=== PATIENT | female | born 1940 | race Caucasian/White ===

== ENCOUNTER 2025-02-02 06:24 | Day surgery (SDC) | payer OTHER, SELFPAY ==
[2025-02-02] VITALS (12 sets, daily range): BP systolic 111–162; BP diastolic 48–78; BMI 25.1
[2025-02-02] MEDS: LOW STRENGTH ASPIRIN 81 MG PO (07:44)
[2025-02-02] MEDS: NSS 181 ML IV (07:46)
[2025-02-02 08:02] LABS: Hematocrit 35.4 % (37.0-47.0); Hemoglobin 11.4 g/dL (12.0-16.0); Mean Corp Hgb Conc. 32.2 g/dL (33.0-37.0); Mean Corpuscular Volume 100.6 fL (81.0-99.0); Nucleated Red Blood Cells % 0 %; Platelet Count 202 10^3/uL (130-400); Red Cell Dist. Width 12.3 % (11.5-14.5)
[2025-02-02 08:17] LABS: Blood Urea Nitrogen 57 mg/dl (7-17); Calcium 10.2 mg/dl (8.4-10.2); Carbon Dioxide 22 mmol/L (22-30); Chloride 107 mmol/L (98-107); Estimated Creatinine Clearance 15 ml/min; Glucose 99 mg/dl (70-99); Potassium 5.3 mmol/L (3.5-5.1); Sodium 140 mmol/L (135-145); eGFR 21.70
[2025-02-02 11:04] LABS: ACT-LR - POC 231 Seconds (116-155)
--- NOTE | 2025-02-02 12:39 | CONSULT.CT ---
Addendum entered and electronically signed by Lobo Wang MD 02/02/25 15:42:
CARDIAC SURGERY ATTENDING:
It was my pleasure to meet with Mrs. Sangita Mccarthy at her bedside. She is a very pleasant 84-year-old woman with past medical history as noted below who presented with SOB, chest tightness, and fatigue progressive over the antecedent 6 months.
She had an abnormal nuclear stress test. She underwent cardiac catheterization earlier today which demonstrated significant left main/multivessel CAD, prompting consideration for surgical coronary revascularization.
I had a very taina conversation with Mrs. Mccarthy who was very clear that she did NOT want to consider any surgical intervention and likely would not desire any PCI/stenting intervention. She stated, 'I decided to just go with the medications' We
discussed the possibility of ongoing/worsening symptomatology and potential for myocardial infarction that could result in her . She seemed comfortable with this stating, 'I never expected to live this long, I do not have longevity in my
family.'
I informed the patient that I would happily reevaluate her should she change her mind and wish to consider surgical intervention. She was appreciative of our conversations.
Thank you,
Lobo Wang M.D.
[phone]
Original Note:
Consultation
-
Date/Time Consultation Requested: 02/02/25
Date/Time Consultation Performed: 02/02/25 12:40
Requesting Provider: Dr. Renée Green MD.
Performing Provider: Maribeth Sanchez PA-C
Reason for Consultation: LM MV CAD, CABG eval
Patient History
Physicians
Family Physician: Dr. Barrie Vargas MD.
Outpatient Escrow Assistant: Dr. Eliel Swanson MD. CCP
Inpatient Escrow Assistant: RON-Dr. Green
History of Present Illness
Patient is extremely pleasant 84-year-old female with past medical history significant for sick sinus syndrome status post dual-chamber [employer] pacemaker insertion by Dr. Candelraio on June 05, 2018, status post generator change
March 2022, CKD stage IV with baseline creatinine 2.2 on 02/03/2020 (2.2 this admission), HTN, HLD, carotid stenosis right greater than left, ovarian cancer 11/17/2002 status post [facility] followed by 9 months of chemotherapy treated at [place],
and former tobacco abuse (quit smoking 43 years ago).
Patient was last seen in the office by Dr. Candelario on January 11, 2025 to evaluate her pacemaker settings as well as her symptomatology. She continues with shortness of breath, chest tightness, and fatigue. Symptoms have been ongoing for the
previous 6 months. Given her history a nuclear stress test was ordered and was found to be abnormal. She was subsequently scheduled for cardiac catheterization at [facility] with Dr. Peter MD today 02/02/25.
Subsequent angiogram revealed left main multivessel CAD. CT surgery was asked to evaluate the patient for coronary artery revascularization.
Past Medical History
Sick sinus syndrome s/p dual-chamber [employer] pacemaker insertion by Dr. Candelario on June 05, 2018
S/p generator change March 2022
CKD stage IV with baseline creatinine 2.2 on 02/03/2020 (2.2 this admission)
HTN/HLD
Carotid stenosis right greater than left
Ovarian cancer 11/17/2002 status post [facility] followed by 9 months of chemotherapy treated at [place]
Former tobacco abuse (quit smoking 43 years ago).
Past Surgical History
Tonsillectomy
[employer] dual-chamber PPM inserted on 06/05/2018
Right inguinal hernia repair 1999
Dental History
Noncontributory
Family History
Mother: at Age (63) and Cause of (Bladder cancer)
Father: at Age (76) and Cause of (AR)
Family Medical History: CAD
Social History
Alcohol: Occasional (1 drink per year)
Drug: None
Tobacco: Former Smoker (Quit 43 years ago)
Personal:
Living: Alone (Patient has 2 daughters)
Employment: Retired (Formally worked at [employer])
Allergies
Allergy/AdvReac Type Severity Reaction Status Date / Time
Penicillins Allergy Severe Redness, Verified 02/02/25 07:54
swelling
of face
alendronate sodium (From Allergy leg pain Verified 02/02/25 07:54
Fosamax)
carvedilol (From Coreg) Allergy cough Verified 02/02/25 07:54
hydralazine Allergy loss of Verified 02/02/25 07:54
appetite,
depression
hydrochlorothiazide (From Allergy cough Verified 02/02/25 07:54
Hyzaar)
lisinopril (From Zestril) Allergy cough Verified 02/02/25 07:54
losartan (From Cozaar) Allergy cough Verified 02/02/25 07:54
nebivolol (From Bystolic) Allergy cough Verified 02/02/25 07:55
prochlorperazine Allergy myalagias Verified 02/02/25 07:54
valsartan (From Diovan) Allergy cough Verified 02/02/25 07:54
Home Medications
�Medication �Instructions �Recorded �Confirmed �Type
aliskiren 300 mg tablet 300 mg PO DAILY 02/02/25 02/02/25 History
aspirin 81 mg tablet 81 mg PO DAILY 02/02/25 02/02/25 History
cholecalciferol (vitamin D3) 50 50 mcg PO DAILY 02/02/25 02/02/25 History
mcg (2,000 unit) tablet (Vitamin
D3)
cyanocobalamin (vitamin B-12) 1,000 mcg sublingual DAILY 02/02/25 02/02/25 History
1,000 mcg sublingual tablet
indapamide 2.5 mg tablet 2.5 mg PO DAILY 02/02/25 02/02/25 History
multivitamin 1 tab PO DAILY 02/02/25 02/02/25 History
nifedipine 60 mg tablet,extended 60 mg PO DAILY 02/02/25 02/02/25 History
release
omega 0-whn-aiy-fish oil 1,200 mg 3 cap PO DAILY 02/02/25 02/02/25 History
(144 mg-216 mg) capsule (Fish Oil)
rosuvastatin 5 mg tablet 5 mg PO DAILY 02/02/25 02/02/25 History
venlafaxine 75 mg capsule,extended 75 mg PO DAILY 02/02/25 02/02/25 History
release 24 hr (Effexor XR)
Review of Systems
-
History Source: Patient
General: Denies Fever, Weight Gain, Weight Loss, Fatigue or Night Sweats
HEENT: Denies Visual Changes, Dysphagia, Hoarseness or Sore Throat
Respiratory: Reports SOB and DELGADO; Denies Cough, Asthma or PND
Cardiac: Reports Other (Chest tightness); Denies Palpitations, Nausea, Vomiting or Diaphoresis
Abdomen/GI: Denies Reflux, Indigestion, Nausea, Vomiting, BRBPR or Ulcers
: Denies Dysuria, Frequency, Incontinence, Urgency or Hematuria
Musculoskeletal: Reports Myalgias and Joint Pain; Denies Edema
Skin: Denies Itching or Rash
Neurological: Denies CVA, TIA, Headaches, Dizzy, Weakness or Seizures
Vascular: Denies Claudication or PVD
Physical Exam
Vital Signs
Temp 97.5 F 02/02/25 12:04
Temp route: Oral 02/02/25 12:04
Pulse 70 02/02/25 07:04
Rhythm: A-V paced atrial/venticul 02/02/25 12:00
Resp Rate 16 02/02/25 07:04
Blood pressure 150/54 02/02/25 07:04
Blood pressure extremity used: Right upper arm 02/02/25 07:04
Position: Sitting 02/02/25 07:04
SaO2 97 02/02/25 07:04
Oxygen Mode of Delivery Room air 02/02/25 07:04
Can the patient verbally communicate their pain? Yes 02/02/25 12:00
Actual Weight 132 lb 11.492 oz 02/02/25 07:04
Body Mass Index (BMI) 25.1 02/02/25 07:04
Labs
02/02/25 07:49
02/02/25 07:49
Exam
General: Well Developed, Well Nourished, No Apparent Distress and Comfortable
HEENT: Normocephalic, Moist Mucous Membranes, Atraumatic, PERRLA and EOMI
Neck: Carotid Bruit (Right bruit) and Trachea Midline
Respiratory: Other (Coarse breath sounds anteriorly)
Cardiac: S1/S2 and Regular Rhythm (/Paced); Negative Rub or Gallop
GI: Soft, Non Tender and Non Distended
Rectal: Deferred by Provider
Skin: Warm and Dry; Negative Rash
Neuro: AO x 3, No Motor Deficits and CN X-XII Intact
Extremities: Negative Upper Level Edema, Lower Level Edema, Upper Level Cyanosis, Lower Level Cyanosis, Upper Level Clubbing or Lower Level Clubbing
Psych: Calm
Assessment / Plan
-
Assessment:
84-year-old female with PMA significant for:
Sick sinus syndrome s/p dual-chamber [employer] pacemaker insertion by Dr. Candelario on June 05, 2018
S/p generator change March 2022
CKD stage IV with baseline creatinine 2.2 on 02/03/2020 (2.2 this admission)
HTN/HLD
Carotid stenosis right greater than left
Ovarian cancer 11/17/2002 status post [facility] followed by 9 months of chemotherapy treated at [place]
Former tobacco abuse (quit smoking 43 years ago).
Now with newly diagnosed:
Abnormal stress test
Left main multivessel CAD
Plan:
Patient's case will be discussed with attending physician.
In conversing with the patient it appears she does not wish to pursue surgical intervention.
Patient will be admitted, cardiology versus medicine
She will be evaluated by attending physician.
Further decision making will be made after discussion with the patient
[2025-02-02] MEDS: NSS 1000 IV (12:46)
--- NOTE | 2025-02-02 13:18 | PTCARENOTE ---
Received patient from laborer starch factory at 1145 after C via R radial artery. Radial band is intact, radial pulse palpable, no signs of bleeding or hematoma. Oriented to the room and plan of care. CT surgery in to speak with the patient as well as Dr. Green
to review cath findings. Monitoring VS, friend Pat is at the bedside, call steven in reach.
[2025-02-02] MEDS: TOPROL XL 25 MG PO (13:27)
--- NOTE | 2025-02-02 14:50 | CM ---
Chart reviewed. Patient is independent of ADLS, lives alone in a 2nd floor condo, [address], 0 DME. Plan is for the patient to return home. CM to follow
--- NOTE | 2025-02-02 17:33 | PTCARENOTE ---
After removing radial band from the right wrist, patient had hematoma develop. Manual pressure applied for 10 mins, no bleeding noted, wrist soft with palpable radial pulse. Ecchymosis present but no edema. Pressure dressing applied with tegaderm
and TT to Mathew Maria NP. No further orders at this time, visiting with friends and offers no complaints. Call steven in reach.
--- NOTE | 2025-02-02 18:10 | ITS.CL.CATH ---
Addendum entered and electronically signed by Renée Green MD 02/03/25 12:41:
Bilateral iliofemoral angiography: Heavily calcified bilateral iliofemoral's. The visualized descending abdominal aorta has mild luminal irregularities. The right common iliac artery has an ostial 60% severely calcified stenosis. The common iliac
artery thereafter has several sequential lesions that are 50 to 70% and are heavily calcified. Immediately after the common iliac bifurcation, the external iliac artery has a heavily calcified 80% stenosis. The right common femoral artery is
calcified with no obstructive stenosis over the femoral head but just at the bifurcation distally has 60% stenosis.
The left common iliac artery has an eccentric up to 80% ostial stenosis. There is heavy calcification of the entire common iliac artery and it is difficult to assess the degree of any further stenosis that may be present. The external iliac artery
has a long area of stenosis that is up to 30 to 30%. The left common iliac artery is also heavily calcified and has 20 to 40% stenosis.
Bilateral common femoral arteries bifurcate at the bottom of the femoral head.
If consideration for high risk complex PCI is being considered, would ideally obtain a CT angiogram of abdomen pelvis for sizing and planning purposes and there is a good chance she would likely need IV L shockwave treatment of the iliofemoral
system for delivery of large bore sheath for percutaneous LVAD such as an Impella to support high risk complex PCI
Renée Green MD, [facility], [facility]
Original Note:
Creative Designer - Catheterization
Cardiac Catheterization
Procedure Report:
LEFT HEART CATHETERIZATION
Date of Procedure: February 02, 2025
Referring: Conrad Russell NP and Eliel Swanson M.D
PROCEDURES:
1. Left heart catheterization, coronary angiogram.
2. Moderate sedation.
3. Intravascular ultrasound of the distal left main/ostial LAD
4. Bilateral iliofemoral angiography.
INDICATION: Ongoing dyspnea on exertion with intermittent chest tightness with abnormal stress test.
ACCESS: Right radial artery, 6Fr. sheath, under US guidance.
HEMODYNAMICS : (mmHg)
AO (s/d) : 103/40
LVEDP : 14
No significant gradient across the aortic valve to suggest aortic stenosis.
CORONARY FINDINGS
Dominance: Codominant
Left Main Trunk (LMT): Large caliber vessel that gives rise to the LAD and LCx branches and there is mild diffuse atherosclerotic plaque.
Left Anterior Descending Artery (LAD): Large caliber vessel that gives off 2 major diagonal branches as it courses along the anterior inter-ventricular groove before wrapping around the cardiac apex. Ostial LAD has a moderately calcified 80%
stenosis (Dean 0, 1, 1) with an MLA that is less than 5 mm� by intravascular ultrasound.
Left Circumflex Artery (LCx): Large caliber vessel that gives off 1 major obtuse marginal (OM) branch, 1 medium caliber left posterolateral branch and a small caliber left posterior descending artery as it courses along the atrio-ventricular (AV)
groove. Ostial left circumflex has a heavily calcified 90% stenosis (Dean 0, 1, 1)
Right Coronary Artery (RCA): Large caliber dominant vessel that gives rise to the posterior descending artery (RPDA) and postero-lateral ventricular (RPLV) branches distally. The RCA and its branches are free of angiographic disease.
Bilateral iliofemoral angiography:
Intravascular ultrasound of the ostial LAD/distal left main: The left coronary artery was selectively engaged using a 6 German JL 3.5 guiding catheter. We advanced a 190 cm 0.014 BMW coronary wire into the distal vessel. Over this we introduced a
[place] eye IVUS catheter which showed diffuse calcified and noncalcified plaque in the left main with obstructive calcified ostial LAD stenosis with MLA less than 5 mm�.
SEDATION: 27 minutes of procedural sedation was utilized. IV Midazolam and IV Fentanyl were administered. An independent medical sales was present to assist with and help manage the patient's level of consciousness and physiologic status.
RADIATION SUMMARY: Fluoro Time (min): 15.7, Dose (mGy): 673.51, DAP (Gy.cm2) : 49.2
Closure Device: There were no immediate intra-procedural complications. The sheath was pulled in the livestock laborer and a vascular-band applied to the right wrist for radial artery hemostasis using the patent hemostasis technique.
CONCLUSIONS
1. Significant heavily calcified multivessel coronary artery disease involving the ostial LAD and ostial left circumflex (Dean 0, 1, 1).
2. LVEDP 14 mmHg.
3. Significant bilateral iliofemoral atherosclerotic plaque as noted above.
RECOMMENDATIONS
1. Wean radial band per protocol. Monitor right hand perfusion and for bleeding from the radial site following removal of the vascular-band following trans-radial access.
2. Continue aggressive medical therapy and risk factor modification for secondary CAD prevention.
3. Hydrate with normal saline to mitigate the risk of contrast-induced acute kidney injury.
4. Heart team discussion given patient's advanced age with multivessel ostial LAD and ostial left circumflex disease which is heavily calcified to discuss treatment options including medical therapy only accepting higher risk of Mace events, high
risk bifurcational PCI with possible Impella and possible atherectomy versus CT surgery consult for consideration of high risk coronary artery bypass grafting.
Copy to: Conrad Russell NP and Eliel Swanson M.D
Renée Green MD, [facility], [facility]
--- NOTE | 2025-02-02 23:55 | PTCARENOTE ---
Assumed care of the pt @ 1900. Pt is AAOx3 a/v paced on the monitor vss. Rt wrist cath site dressing c/d/i. POC discussed with pt. Call steven within reach.
[2025-02-03 03:32] VITALS: BMI 24.5
[2025-02-03 03:40] VITALS: BP 167/62
[2025-02-03 04:11] LABS: Hematocrit 31.3 % (37.0-47.0); Hemoglobin 10.1 g/dL (12.0-16.0); Mean Corp Hgb Conc. 32.3 g/dL (33.0-37.0); Mean Corpuscular Volume 100.3 fL (81.0-99.0); Platelet Count 180 10^3/uL (130-400); Red Cell Dist. Width 12.2 % (11.5-14.5)
[2025-02-03 04:35] LABS: Blood Urea Nitrogen 40 mg/dl (7-17); Calcium 10.1 mg/dl (8.4-10.2); Carbon Dioxide 22 mmol/L (22-30); Chloride 111 mmol/L (98-107); Estimated Creatinine Clearance 19 ml/min; Glucose 88 mg/dl (70-99); HDL Cholesterol 72 mg/dl; LDL Cholesterol, Calculated 59 mg/dl; Potassium 4.9 mmol/L (3.5-5.1); Sodium 140 mmol/L (135-145); Very Low Density Lipoprotein 15 mg/dl (0-30); eGFR 29.57
[2025-02-03 07:44] VITALS: BP 156/55
--- NOTE | 2025-02-03 07:56 | PTCARENOTE ---
Patient resting in bed this morning, slept well and states she feels 'good'. Right wrist dressing is dry and intact, ecchymosis noted right wrist but soft with a strong radial pulse. Patient already ate breakfast, scheduled for echo today.
[2025-02-03] MEDS: CRESTOR 20 MG PO (08:29)
[2025-02-03] MEDS: ASPIR LOW (ENTERIC COATED) 81 MG PO (08:29)
[2025-02-03] MEDS: EFFEXOR XR 75 MG PO (08:29)
[2025-02-03] MEDS: PROCARDIA XL (EXTENDED RELEASE) 60 MG PO (08:30)
[2025-02-03] MEDS: TOPROL XL 25 MG PO (08:30)
--- NOTE | 2025-02-03 09:07 | W.PN.CARDCBS ---
Addendum entered and electronically signed by Renée Green MD 02/03/25 12:37:
I saw and examined the patient.
The Cracker Sprayer's note was reviewed and I agree with the note.
Comment: Patient did well overnight without complaints of chest discomfort or shortness of breath at rest. She has been ambulating to the bathroom without any issues. She slept well.
Vital signs and lab work reviewed. On exam, patient is well-appearing, no acute distress, awake, alert and oriented x 3, regular rate, normal S1 and S2, no murmurs, rubs or gallops, no JVD, abdomen is soft, nontender, nondistended with active bowel
sounds, warm extremities without significant edema, cath access site without evidence of hematoma or bruit
Recommendations:
1. Extensive discussion was had again with the patient after she has spoken to both her daughters as well as a couple of friends discussing all potential treatment options including coronary artery bypass grafting versus high risk complex
bifurcational PCI with likely atherectomy and possible Impella support (which would also warrant possible peripheral shockwave and intervention given significant iliofemoral disease) versus medical therapy only and increase risk of possible Mace
events including recurrent MIs, cardiomyopathy/heart failure and . After reviewing the risk and benefits of each approach, patient would like to pursue medical therapy excepting the risk as described.
2. We will optimize medications and discuss continuing daily baby aspirin, high intensity statin, low-dose beta-anders and calcium channel anders as 2 antianginals. He will also go home on sublingual nitroglycerin and was counseled on how and
when to take this medication.
3. She will have an echocardiogram completed prior to discharge to assess biventricular function and rule out any significant valvular abnormalities.
4. We will have CDs for both the cath as well as the echocardiogram sent with her along with the reports.
5. Plan for discharge later today and she has follow-up set up with her outpatient acoustical tile patternmaker already tomorrow which she will maintain.
Discussed with nursing and outpatient acoustical tile patternmaker.
Renée Green MD, [facility], [facility]
Total time spent: 52mins
Original Note:
Today's Communication / Plan
-
new start metoprolol
dose increase crestor
echo today
home later today
followup with Dr. Swanson
Impression / Plan
-
PCP: Barrie Vargas,
CDY: Eliel Swanson MD
84 y/o, PMH sig for SSS w/PPM (2017), CKD4 w/baseline creat 2.2, HTN, HLD, carotid stenosis right greater than left, ovarian cancer 11/17/2002 status post [facility] followed by 9 months of chemotherapy treated at [place].
Presents with 6 month history of chest tightness, SOB, fatigue. PET NST 01/19 with apical inferior ischemia, EF 70%. Referred for cath, which was notable for sig heavily calcified MVCAD, and CT surgery was consulted.
LHC 8/5- 80% moderately calcified ostial LAD
90% heavily calcified ostial LCx
LVEDP 14
significant bilat ileofemoral atherosclerotic plaque
IMPRESSION:
Heavily calcified ostial LAD/LCx CAD
Bilat ileofemoral PAD
ICS, R>L
SSS w/PPM (2017), and gen change (2021)
CKD4
HTN
HLD
Ovarian Ca w/[facility] and chemo (2002)
PLAN:
[place] with abnormal PET NST
Cath with MVCAD in ostial LAD/LCx
CT surgery consult appreciated- pt declines both surgery and complex high risk PCI after discussion with Heart team and Cardiology.
Prefers medical management- new start metoprolol xl 25mg/daily, increase rosuvastatin to 20mg/daily, aspirin 81mg/daily
Tele overnight- A/AV pacing 60s, no VT/arrhythmia
Echocardiogram today
cath site stable with some ecchymosis but no ht
modestly elevated SBP overnight- continue BP meds as before and monitor trends with addition of metoprolol
Creat stable post dye load- 1.7 this morning
Stable anemia
Followup with Dr. Swanson
Anticipate home later today
Progress Note - Orthotist Prosthetist
Subjective
Date of Service: February 03, 2025
Denies cp/palps/dyspnea
oob ambulating
radial cath site without pain
Objective
Labs:
02/03/25 03:43
02/03/25 03:43
Labs
Hgb 10.1 g/dL (12.0-16.0) L 02/03/25 03:43
Hct 31.3 % (37.0-47.0) L 02/03/25 03:43
Plt Count 180 10^3/uL (130-400) 02/03/25 03:43
Sodium 140 mmol/L (135-145) 02/03/25 03:43
Potassium 4.9 mmol/L (3.5-5.1) 02/03/25 03:43
BUN 40 mg/dl (7-17) H 02/03/25 03:43
Creatinine 1.7 mg/dL (0.6-1.0) H 02/03/25 03:43
Glucose 88 mg/dl (70-99) 02/03/25 03:43
Vital Signs and I&O:
Vital Signs
Temp Pulse Resp BP Pulse Ox
98 F 70 20 156/55 94
02/03/25 07:44 02/03/25 07:44 02/03/25 07:44 02/03/25 07:44 02/03/25 07:44
Vital Signs
Temp Pulse Resp BP Pulse Ox
98 F 70 20 156/55 94
02/03/25 07:44 02/03/25 07:44 02/03/25 07:44 02/03/25 07:44 02/03/25 07:44
Intake & Output
02/01/25 02/02/25 02/03/25 02/04/25
06:59 06:59 06:59 06:59
Intake Total 780 / 780
Balance 780 / 780
Physical Exam
Physical Exam
AAOx3, MAEE 5/5
RRR S1 S2 no murmurs
CTA bilat, non labored
soft abd, + bs
right radial cath with ecchymosis and mildly tender, no ht/bleeding
bilat extremities without edema, palpable distal pulses
--- NOTE | 2025-02-03 10:20 | W.DS.TRANS ---
DC Summary - Investment Advisor
-
Discharge Instructions:
Discharge Diagnosis/Procedures Cardiac catheterization
Diet Low Cholesterol
Driving Restrictions No driving for 24 hours
Instructions:
Stand-Alone Forms: DC Instructions- Cath/EP Lab
Changes to Home Medications: Yes
Discharge Medications:
DC Medications w/original date entered in [employer]
aliskiren 300 mg tablet 300 mg PO DAILY 02/02/25
aspirin 81 mg tablet 81 mg PO DAILY 02/02/25
cholecalciferol (vitamin D3) 50 mcg (2,000 unit) tablet (Vitamin D3) 50 mcg PO DAILY 02/02/25
cyanocobalamin (vitamin B-12) 1,000 mcg sublingual tablet 1,000 mcg sublingual DAILY 02/02/25
indapamide 2.5 mg tablet 2.5 mg PO DAILY 02/02/25
multivitamin 1 tab PO DAILY 02/02/25
nifedipine 60 mg tablet,extended release 60 mg PO DAILY 02/02/25
omega [id number]-fish oil 1,200 mg (144 mg-216 mg) capsule (Fish Oil) 3 cap PO DAILY 02/02/25
venlafaxine 75 mg capsule,extended release 24 hr (Effexor XR) 75 mg PO DAILY 02/02/25
metoprolol succinate 25 mg tablet,extended release 24 hr 25 mg PO DAILY #30 tabs 02/03/25
nitroglycerin 0.4 mg sublingual tablet 0.4 mg sublingual [id number] PRN chest pain #25 tabs 02/03/25
rosuvastatin 20 mg tablet 20 mg PO DAILY #30 tabs 02/03/25
Home Medication Changes
NEW: metoprolol succinate, nitrostat
DOSE INCREASE: rosuvastatin, aspirin
Pending Results: No
[2025-02-03 11:59] VITALS: BP 122/54
[2025-02-03 12:36] VITALS: BP 109/47
[2025-02-03 15:54] VITALS: BP 154/82
--- NOTE | 2025-02-03 16:55 | PTCARENOTE ---
Echo completed and read and patient is ok for discharge home. Patient given copies and discs of her echo and cath to take to her information security tomorrow. Reviewed discharge instructions with her and medication changes and she states her understanding.
Patient discharged home with her friend.
== END 2025-02-03 16:58 | disposition home or self-care (01) ==
LOC: CATH 06:24
PROVIDERS: Nurse Practitioner Adult Health; ATTENDING PHYSICIAN Internal Medicine Interventional Cardiology; CONSULT PHYSICIAN Thoracic Surgery (Cardiothoracic Vascular Surgery); FAMILY PHYSICIAN Family Medicine; OTHER PHYSICIAN Internal Medicine Clinical Cardiac Electrophysiology
DX: I25.10 Atherosclerotic heart disease of native coronary artery without angina pectoris (principal); I12.9 Hypertensive chronic kidney disease with stage 1 through stage 4 chronic kidney disease, or unspecified chronic kidney disease; N18.4 Chronic kidney disease, stage 4 (severe); Z87.891 Personal history of nicotine dependence; E78.5 Hyperlipidemia, unspecified; Z90.710 Acquired absence of both cervix and uterus; Z92.21 Personal history of antineoplastic chemotherapy; I49.5 Sick sinus syndrome; Z85.43 Personal history of malignant neoplasm of ovary; R06.09 Other forms of dyspnea; R07.89 Other chest pain; I25.84 Coronary atherosclerosis due to calcified coronary lesion; Z79.899 Other long term (current) drug therapy; Z79.82 Long term (current) use of aspirin
CPT/HCPCS: 99152; 99153; 92978; G0278; 80048; 80061; 85025; 85027; 85347; 93005; 93306; 93458; C1753; C1769; C1894